=== PATIENT | male | born 1960 | race Caucasian/White ===

== ENCOUNTER 2022-08-19 08:13 | Day surgery (SDC) | payer MEDICAID ==
[2022-08-19] VITALS (15 sets, daily range): BP systolic 108–132; BP diastolic 60–82
[~2022-08-19] VITALS: Ht 182.9 cm; Wt 93.8 kg
[2022-08-19] MEDS ORDERED: albumin 25% 100mL bottle x 1 IV PRN (08:45)
[2022-08-19] MEDS ORDERED: normal saline 1000ml 1,000 ML IV PRN (08:45)
[2022-08-19] MEDS ORDERED: LIDOcaine 1% 30ml preserv. free vial IJ STA (09:12)
[2022-08-19 09:13] LABS: BASOPHILS # (AUTO) 0.1 X10'3 (0-0.2); BASOPHILS % (AUTO) 1.3 % (0-1); EOSINOPHILS # (AUTO) 0.3 X10'3 (0-0.9); EOSINOPHILS % (AUTO) 4.3 % (0-6); HEMATOCRIT 40.8 % (42.0-52.0); HEMOGLOBIN 13.7 g/dl (14.0-17.9); LYMPHOCYTES # (AUTO) 1.6 X10'3 (1.1-4.8); LYMPHOCYTES % (AUTO) 25.6 % (21-51); MEAN CORPUSCULAR HEMOGLOBIN 29.3 PG (27.0-31.0); MEAN CORPUSCULAR HGB CONC 33.5 g/dL (33.0-36.5); MEAN CORPUSCULAR VOLUME 87.5 FL (78-98); MEAN PLATELET VOLUME 7.7 FL (7.4-10.4); MONOCYTES # (AUTO) 0.5 X10'3 (0-0.9); MONOCYTES % (AUTO) 7.6 % (2-12); NEUTROPHILS # (AUTO) 3.8 X10'3 (1.8-7.7); NEUTROPHILS % (AUTO) 61.2 % (42-75); PLATELET COUNT 252 X10'3 (140-440); RED BLOOD COUNT 4.67 X10'6 (4.70-6.10); RED CELL DISTRIBUTION WIDTH 14.6 % (11.5-14.5); WHITE BLOOD COUNT 6.1 X10'3 (4.5-11.0)
[2022-08-19] MEDS ORDERED: fentaNYL/PF 50MCG/1 ML 2ML syringe ONE (10:12)
[2022-08-19] MEDS ORDERED: midazolam 1 mg/ML 2ml injection ONE (10:12)
[2022-08-19] MEDS ORDERED: SAW/1TAB2 PO (10:26)
[2022-08-19] MEDS ORDERED: ZINC50TA60 PO (10:26)
[2022-08-19] MEDS ORDERED: OMEG1600 PO (10:26)
[2022-08-19] MEDS ORDERED: VITA400T10 PO (10:26)
[2022-08-19] MEDS ORDERED: VITA-268 PO (10:26)
[2022-08-19] MEDS ORDERED: PROC-8 PO (10:26)
[2022-08-19] MEDS ORDERED: MAGN400T39 PO (10:26)
[2022-08-19] MEDS ORDERED: ONDA8TAB13 PO (10:26)
[2022-08-19] MEDS ORDERED: MULT-1085 PO (10:26)
[2022-08-19] MEDS ORDERED: ALLO300T2 PO (10:26)
== END 2022-08-19 14:00 | disposition home or self-care (01) ==
LOC: SSTAY O 08:13
PROVIDERS: ATTEND Radiology Vascular & Interventional Radiology
DX: J90 Pleural effusion, not elsewhere classified (principal); R91.8 Other nonspecific abnormal finding of lung field; C82.88 Other types of follicular lymphoma, lymph nodes of multiple sites; Z79.899 Other long term (current) drug therapy; Z98.890 Other specified postprocedural states; Z72.89 Other problems related to lifestyle
CPT/HCPCS: 32408; 32555; 36415; 71045; 82948; 85025; 85610; 99152; J2250; J3010; J3490; J7030; 77012; 99153; A4615

== ENCOUNTER 2022-08-23 14:56 | Emergency (ER) | payer MEDICAID ==
[~2022-08-23] VITALS: Ht 182.9 cm; Wt 93.6 kg
[~2022-08-23 14:56] MED LIST: ALLO300T2 PO; MAGN400T39 PO; MULT-1085 PO; OMEG1600 PO; ONDA8TAB13 PO; PROC-8 PO; SAW/1TAB2 PO; VITA-268 PO; VITA400T10 PO; ZINC50TA60 PO
[2022-08-23 15:11] VITALS: BP 126/77
[2022-08-23] MEDS ORDERED: proparacaine 0.5% ophthalmic drops 15ml LEFTEYE ONE (16:15)
== END 2022-08-23 17:20 | disposition home or self-care (01) ==
LOC: ER 14:57
DX: H53.8 Other visual disturbances (principal)
CPT/HCPCS: 99282

== ENCOUNTER 2022-09-09 10:45 | Day surgery (SDC) | payer MEDICAID ==
[~2022-09-09] VITALS: Ht 182.9 cm; Wt 93.3 kg
[2022-09-09 10:55] VITALS: BP 124/86
[2022-09-09] MEDS ORDERED: heparin sodium, porcine/PF 100unit/ml 5ML syringe ONE (11:52)
[2022-09-09] MEDS ORDERED: fentaNYL/PF 50MCG/1 ML 2ML syringe ONE (11:53)
[2022-09-09] MEDS ORDERED: midazolam 1 mg/ML 2ml injection ONE ×2 (11:53→13:01)
[2022-09-09] MEDS ORDERED: LIDOcaine 1% 30ml preserv. free vial ONE (11:53)
[2022-09-09 12:26] LABS: BASOPHILS % (AUTO) 0.8 % (0-1); EOSINOPHILS # (AUTO) 0.3 X10'3 (0-0.9); EOSINOPHILS % (AUTO) 4.6 % (0-6); HEMATOCRIT 39.5 % (42.0-52.0); HEMOGLOBIN 12.9 g/dl (14.0-17.9); LYMPHOCYTES # (AUTO) 1.3 X10'3 (1.1-4.8); LYMPHOCYTES % (AUTO) 20.9 % (21-51); MEAN CORPUSCULAR HEMOGLOBIN 28.6 PG (27.0-31.0); MEAN CORPUSCULAR HGB CONC 32.8 g/dL (33.0-36.5); MEAN CORPUSCULAR VOLUME 87.3 FL (78-98); MONOCYTES # (AUTO) 0.5 X10'3 (0-0.9); MONOCYTES % (AUTO) 7.7 % (2-12); PLATELET COUNT 255 X10'3 (140-440); RED BLOOD COUNT 4.52 X10'6 (4.70-6.10); RED CELL DISTRIBUTION WIDTH 14.8 % (11.5-14.5)
[2022-09-09 13:40] VITALS: BP 124/86
[2022-09-09 13:45] VITALS: BP 119/73
[2022-09-09 14:00] VITALS: BP 101/72
[2022-09-09 14:15] VITALS: BP 111/74
[2022-09-09 14:30] VITALS: BP 108/68
== END 2022-09-09 14:45 | disposition home or self-care (01) ==
LOC: SSTAY O 10:45
PROVIDERS: ATTEND Radiology Vascular & Interventional Radiology
DX: C82.90 Follicular lymphoma, unspecified, unspecified site (principal); H91.93 Unspecified hearing loss, bilateral; Z79.899 Other long term (current) drug therapy; Z98.890 Other specified postprocedural states
CPT/HCPCS: 36415; 36561; 76937; 77001; 85025; 99152; 99153; C1788; C1894; J1642; J2250; J3010; J3490; J7030; A4620

== ENCOUNTER 2022-09-23 06:01 | Day surgery (SDC) | payer MEDICAID ==
[2022-09-23] VITALS (8 sets, daily range): BP systolic 112–138; BP diastolic 71–89
[~2022-09-23] VITALS: Ht 182.9 cm; Wt 92.0 kg
[~2022-09-23 06:01] MED LIST changes: +LIDOcaine 1% 30ml preserv. free vial SQ STA
[2022-09-23] MEDS ORDERED: DUTA0.5C36 PO (06:25)
[2022-09-23] MEDS ORDERED: SULF1TAB45 (06:25)
[2022-09-23] MEDS ORDERED: KETO5DRO39 EACHEYE (06:25)
[2022-09-23] MEDS ORDERED: PRED10DR7 (06:25)
[2022-09-23] MEDS ORDERED: ACYC-126 PO (06:25)
== END 2022-09-23 09:17 | disposition home or self-care (01) ==
LOC: SSTAY O 06:01
PROVIDERS: ATTEND Radiology Vascular & Interventional Radiology
DX: C85.90 Non-Hodgkin lymphoma, unspecified, unspecified site (principal); J91.0 Malignant pleural effusion; Z79.899 Other long term (current) drug therapy; Z87.898 Personal history of other specified conditions; Z98.890 Other specified postprocedural states
CPT/HCPCS: 32555; 82948; J3490; C1729

== ENCOUNTER 2022-11-14 06:01 | Day surgery (SDC) | payer MEDICAID ==
[2022-11-14] VITALS (7 sets, daily range): BP systolic 111–140; BP diastolic 69–81
[~2022-11-14] VITALS: Ht 182.9 cm; Wt 89.9 kg
[~2022-11-14 06:01] MED LIST changes: +ACYC-126 PO; +DUTA0.5C36 PO; +KETO5DRO39 EACHEYE; -LIDOcaine 1% 30ml preserv. free vial SQ STA; +PRED10DR7; +SULF1TAB45
[2022-11-14] MEDS ORDERED: LIDOcaine 1% 30ml preserv. free vial SQ ONE (06:05)
[2022-11-14] MEDS ORDERED: BEND25VI IV (06:38)
[2022-11-14] MEDS ORDERED: OBIN1000 IV (06:38)
== END 2022-11-14 10:00 | disposition home or self-care (01) ==
LOC: SSTAY O 06:01
PROVIDERS: ATTEND Radiology Vascular & Interventional Radiology
DX: J90 Pleural effusion, not elsewhere classified (principal); N40.0 Benign prostatic hyperplasia without lower urinary tract symptoms; Z85.72 Personal history of non-Hodgkin lymphomas; Z72.89 Other problems related to lifestyle; Z79.899 Other long term (current) drug therapy
CPT/HCPCS: 32555; J3490

== ENCOUNTER 2022-12-10 08:14 | Day surgery (SDC) | payer MEDICAID ==
[~2022-12-10 08:14] MED LIST changes: +BEND25VI IV; -DUTA0.5C36 PO; -KETO5DRO39 EACHEYE; +OBIN1000 IV; -ONDA8TAB13 PO; -PRED10DR7; -PROC-8 PO; -ZINC50TA60 PO
[2022-12-10] MEDS ORDERED: LIDOcaine 1% 30ml preserv. free vial SQ STA (08:21)
[2022-12-10 08:35] VITALS: BP 123/74
[2022-12-10 09:32] VITALS: BP 117/61
[2022-12-10 09:42] VITALS: BP 122/74
[2022-12-10 10:01] VITALS: BP 135/81
[2022-12-10 10:16] VITALS: BP 133/74
== END 2022-12-10 10:30 | disposition home or self-care (01) ==
LOC: SSTAY O 08:14
PROVIDERS: ATTEND Radiology Diagnostic Radiology
DX: J90 Pleural effusion, not elsewhere classified (principal); N40.0 Benign prostatic hyperplasia without lower urinary tract symptoms; H91.8X3 Other specified hearing loss, bilateral; Z85.72 Personal history of non-Hodgkin lymphomas; Z72.89 Other problems related to lifestyle
CPT/HCPCS: 32555; J3490

== ENCOUNTER 2023-04-25 08:44 | Day surgery (SDC) | payer MEDICAID ==
[~2023-04-25] VITALS: Ht 182.9 cm; Wt 91.9 kg
[~2023-04-25 08:44] MED LIST changes: -OBIN1000 IV
[2023-04-25 09:06] VITALS: BP 131/70
[2023-04-25] MEDS ORDERED: normal saline 1000ml 1,000 ML IV PRN (09:15)
[2023-04-25] MEDS ORDERED: MECO10005 (09:29)
[2023-04-25 09:31] LABS: BASOPHILS % (AUTO) 0.6 % (0-1); EOSINOPHILS # (AUTO) 0.2 X10'3 (0-0.9); HEMATOCRIT 37.8 % (42.0-52.0); HEMOGLOBIN 12.5 g/dl (14.0-17.9); LYMPHOCYTES # (AUTO) 0.2 X10'3 (1.1-4.8); LYMPHOCYTES % (AUTO) 4.6 % (21-51); MEAN CORPUSCULAR HEMOGLOBIN 30.5 PG (27.0-31.0); MEAN CORPUSCULAR HGB CONC 33.1 g/dL (33.0-36.5); MEAN CORPUSCULAR VOLUME 92.1 FL (78-98); MEAN PLATELET VOLUME 8.2 FL (7.4-10.4); MONOCYTES # (AUTO) 0.4 X10'3 (0-0.9); NEUTROPHILS # (AUTO) 2.7 X10'3 (1.8-7.7); NEUTROPHILS % (AUTO) 76.8 % (42-75); PLATELET COUNT 206 X10'3 (140-440); RED BLOOD COUNT 4.11 X10'6 (4.70-6.10); WHITE BLOOD COUNT 3.6 X10'3 (4.5-11.0)
[2023-04-25] MEDS ORDERED: diatrozoate meglu/diatrozoate sod (37% iodine) 120ML oral solution PO ONE (09:45)
[2023-04-25] MEDS ORDERED: diatr meglu/diatrizoate 30ml oral sol.-(3 dose) bottle PO ONE (10:20)
[2023-04-25] MEDS ORDERED: fentaNYL/PF 50MCG/1 ML 2ML syringe ONE (10:41)
[2023-04-25] MEDS ORDERED: midazolam 1 mg/ML 2ml injection ONE (10:41)
[2023-04-25 11:05] VITALS: BP 112/79
--- NOTE | 2023-04-25 11:30 | NUR ---
pt back from from IR, no procedure done, unable to do biopsy due to intestines being in the way. pt will follow up with oncologist for further testing. per MD resume all home meds. all belongings sent home with pt. pt ambulated to private vehicle.
== END 2023-04-25 11:35 | disposition home or self-care (01) ==
LOC: SSTAY O 08:44
PROVIDERS: ATTEND Radiology Vascular & Interventional Radiology
DX: R59.0 Localized enlarged lymph nodes (principal); Z53.8 Procedure and treatment not carried out for other reasons; N13.30 Unspecified hydronephrosis; C85.19 Unspecified B-cell lymphoma, extranodal and solid organ sites; N40.0 Benign prostatic hyperplasia without lower urinary tract symptoms; Z72.89 Other problems related to lifestyle; Z79.899 Other long term (current) drug therapy
CPT/HCPCS: 36415; 74150; 85025; J2250; J3010; J7030; Q9963; A4615

== ENCOUNTER 2023-06-25 06:36 | Day surgery (SDC) | payer MEDICAID ==
[2023-06-20 14:54] LABS: BILIRUBIN,URINE NEGATIVE (Neg); CLARITY,URINE CLEAR (Clear); COLOR,URINE YELLOW (Yellow); GLUCOSE, URINE NEGATIVE (Neg); KETONES,URINE NEGATIVE (Neg); LEUKOCYTE ESTERASE ,URINE NEGATIVE (Neg); NITRITES, URINE NEGATIVE (Neg); OCCULT BLOOD,URINE NEGATIVE (Neg); PH,URINE 5.5 (4.8-8.0); PROTEIN,URINE NEGATIVE (Neg); UA COLLECTION TYPE CLN CATCH MIDSTREAM; UROBILINOGEN,URINE 0.2 E.U/dL (0.2-1.0)
[2023-06-20 14:55] LABS: BASOPHILS # (AUTO) 0.1 X10'3 (0-0.2); BASOPHILS % (AUTO) 1.2 % (0-1); EOSINOPHILS # (AUTO) 0.2 X10'3 (0-0.9); EOSINOPHILS % (AUTO) 4.8 % (0-6); LYMPHOCYTES # (AUTO) 0.2 X10'3 (1.1-4.8); LYMPHOCYTES % (AUTO) 3.4 % (21-51); MEAN CORPUSCULAR HGB CONC 33.5 g/dL (33.0-36.5); MEAN CORPUSCULAR VOLUME 89.5 FL (78-98); MEAN PLATELET VOLUME 8.3 FL (7.4-10.4); MONOCYTES # (AUTO) 0.5 X10'3 (0-0.9); MONOCYTES % (AUTO) 10.7 % (2-12); NEUTROPHILS # (AUTO) 4.1 X10'3 (1.8-7.7); NEUTROPHILS % (AUTO) 79.9 % (42-75); PRE OP HEMATOCRIT 36.9 % (42.0-52.0); PRE OP HEMOGLOBIN 12.4 g/dL (14.0-17.9); PRE OP PLATELET COUNT 279 X10'3 (140-440); PRE OP WHITE BLOOD COUNT 5.1 10'3 (4.8-10.8); RED BLOOD COUNT 4.12 X10'6 (4.70-6.10); RED CELL DISTRIBUTION WIDTH 14.2 % (11.5-14.5)
[2023-06-20 15:07] LABS: ALBUMIN 3.4 G/DL (3.4-5.0); ALBUMIN/GLOBULIN RATIO 0.9 (1.1-1.5); ALKALINE PHOSPHATASE 93 IU/L (46-116); BLOOD UREA NITROGEN 21 MG/DL (7-18); CALCIUM 10.1 MG/DL (8.5-10.1); CHLORIDE 100 MMOL/L (99-107); CREATININE 1.05 MG/DL (0.60-1.10); PRE OP ALT 19 U/L (30-65); PRE OP ANION GAP 12 (8-16); PRE OP AST 26 U/L (10-37); PRE OP BILIRUB, TOTAL 0.4 MG/DL (0.0-1.0); PRE OP GLUCOSE 103 MG/DL (70-104); PRE OP SODIUM 141 MMOL/L (135-145); TOTAL CARBON DIOXIDE 28.7 MMOL/L (24-32); TOTAL PROTEIN 7.3 G/DL (6.4-8.2); eGFR 71 ML/MIN
[~2023-06-25] VITALS: Ht 182.9 cm; Wt 88.5 kg
[~2023-06-25 06:36] MED LIST changes: -ACYC-126 PO; -MAGN400T39 PO; +MECO10005; -SAW/1TAB2 PO; -SULF1TAB45; -VITA-268 PO; +cefazolin 2gm/D5W 100mL 100 ML IV ONE; +famotidine 20mg tablet PO ONE; +ringers solution, lacted 1,000 ML IV SCH
[2023-06-25 06:50] VITALS: BP 131/77; PULSE 81; RESP 16; TEMP 98.1; O2SAT 94
[2023-06-25] MEDS ORDERED: BUPIVAcaine/PF 2.5 mg/ml (0.25%) 30ml vial ONE (09:51)
[2023-06-25] MEDS ORDERED: glycopyrrolate 0.2mg/ml inj ONE (09:53)
[2023-06-25] MEDS ORDERED: sevoflurane 250ml liquid IH ONE (09:53)
[2023-06-25] MEDS ORDERED: dexamethasone sod phosphate 10mg/ml inj ONE (09:53)
[2023-06-25] MEDS ORDERED: neostigmine methylsulfate 1 MG/ML 10ml vial ONE (09:53)
[2023-06-25] MEDS ORDERED: meperidine/PF 25mg/ml syringe IV PRN ×3 (09:55)
[2023-06-25] MEDS ORDERED: ondansetron/PF 4mg/2ml inj IV PRN (09:55)
[2023-06-25] MEDS ORDERED: morphine 4 MG/ML inj SYRINge IV PRN (09:55)
[2023-06-25] MEDS ORDERED: ringers solution, lacted 1,000 ML IV SCH (09:55)
[2023-06-25] MEDS ORDERED: morphine 2 MG/ML inj. syringe IV PRN (09:55)
[2023-06-25] MEDS ORDERED: proCHLORperazine 10 MG/2 ml inj IV PRN (09:55)
[2023-06-25] MEDS ORDERED: midazolam 1 mg/ML 2ml injection ONE (09:58)
[2023-06-25] MEDS ORDERED: fentaNYL/PF 50MCG/1 ML 2ML syringe ONE (09:58)
[2023-06-25] MEDS ORDERED: LIDOcaine 1%/PF 5ML 10 MG/ML VIAL ONE (10:06)
[2023-06-25] MEDS ORDERED: rocuronium 10mg/ml inj IV ONE (10:06)
[2023-06-25] MEDS ORDERED: propofol inj 20 ML IV ONE (10:06)
[2023-06-25] MEDS ORDERED: ondansetron/PF 4mg/2ml inj ONE (10:08)
[2023-06-25] MEDS ORDERED: acetaminophen 1,000mg/100ml IV 100 ML IV ONE (10:44)
[2023-06-25 11:02] VITALS: BP 138/90; PULSE 70; RESP 16; O2SAT 97
--- NOTE | 2023-06-25 11:02 | NUR ---
Received from OR via [facility], accompanied by Anesthesiologist and report given by NATALY Anesthesiologist. PATIENT WAKING UP, NO S/S OF PAIN, V/S WNL, SCD ON , PIV 20G RIGHT HAND, LAPS SITES CLOSED C/D/I TO ABDOMEN. Addendum: 06/25/23 at 1122 by Pardeep Valdes RN Amended: Links added.
[2023-06-25 11:10] VITALS: BP 133/76; PULSE 69; RESP 23; O2SAT 95
[2023-06-25 11:20] VITALS: BP 119/74; PULSE 73; RESP 18; O2SAT 90
[2023-06-25 11:30] VITALS: BP 124/76; PULSE 71; RESP 15; O2SAT 95
[2023-06-25 11:40] VITALS: BP 130/77; PULSE 70; RESP 16; O2SAT 96
--- NOTE | 2023-06-25 11:47 | NUR ---
ALL DISCHARGE CRITERIA HAS BEEN MET. VSS, PAIN AT A TOLERABLE LEVEL, ABLE TO SAFELY AMBULATE AND TRANSFER SELF. IV TAKEN OUT WITHOUT ANY COMPLICATIONS. ALL DISCHARGE INSTRUCTIONS COVERED WITH PATIENT AND ALL QUESTIONS ANSWERED. PATIENT TAKEN OUT VIA WHEELCHAIR WITH ALL BELONGINGS TO PERSONAL VEHICLE WHERE FAMILY DROVE PATIENT HOME. Addendum: 06/25/23 at 1204 by Pardeep Valdes RN Amended: Links added.
== END 2023-06-25 11:47 | disposition home or self-care (01) ==
LOC: PAS 06:36
PROVIDERS: ATTEND Surgery
DX: R59.0 Localized enlarged lymph nodes (principal); C83.33 Diffuse large B-cell lymphoma, intra-abdominal lymph nodes; N40.0 Benign prostatic hyperplasia without lower urinary tract symptoms; I25.2 Old myocardial infarction; Z98.890 Other specified postprocedural states; Z79.899 Other long term (current) drug therapy; Z80.42 Family history of malignant neoplasm of prostate
CPT/HCPCS: 38500; 71045; 80053; 81003; 82948; 85025; 93005; J0131; J0690; J1100; J2250; J2405; J2704; J2710; J3010; J3490; J7120; Z7506; Z7508; Z7512; A4215; A4618; A7000

== ENCOUNTER 2024-02-08 17:25 | Inpatient (IN) | payer MEDICAID ==
[~2024-02-08] VITALS: Ht 180.3 cm; Wt 57.9 kg
[~2024-02-08 17:25] MED LIST changes: -cefazolin 2gm/D5W 100mL 100 ML IV ONE; -famotidine 20mg tablet PO ONE; -ringers solution, lacted 1,000 ML IV SCH
[2024-02-08 18:20] LABS: ALBUMIN 2.3 G/DL (3.4-5.0); ANION GAP 12 (8-16); BLOOD UREA NITROGEN 21 MG/DL (7-18); CALCIUM 8.6 MG/DL (8.5-10.1); CHLORIDE 98 MMOL/L (99-107); CREATININE 1.05 MG/DL (0.60-1.10); GLUCOSE 183 MG/DL (70-104); POTASSIUM 3.7 MMOL/L (3.5-5.1); SODIUM 136 MMOL/L (135-145); TOTAL CARBON DIOXIDE 25.6 MMOL/L (24-32); eCRCL 62 ML/MIN; eGFR 71 ML/MIN
[2024-02-08] MEDS: normal saline 1000ML IV soln IVB ONE (18:25)
[2024-02-08 18:42] LABS: EOSINOPHILS # (AUTO) 0.1 X10'3 (0-0.9); MEAN PLATELET VOLUME 8.3 FL (7.4-10.4); MONOCYTES # (AUTO) 0.4 X10'3 (0-0.9)
[2024-02-08 18:46] LABS: MEAN CORPUSCULAR HGB CONC 31.2 g/dL (33.0-36.5); WHITE BLOOD COUNT 7.4 X10'3 (4.5-11.0)
[2024-02-08 18:51] LABS: BASOPHILS # (AUTO) 0.1 X10'3 (0-0.2); BASOPHILS % (AUTO) 1.1 % (0-1); EOSINOPHILS % (AUTO) 1.1 % (0-6); LYMPHOCYTES # (AUTO) 0.2 X10'3 (1.1-4.8); LYMPHOCYTES % (AUTO) 3.1 % (21-51); MEAN CORPUSCULAR HEMOGLOBIN 25.2 PG (27.0-31.0); MEAN CORPUSCULAR VOLUME 80.8 FL (78-98); MONOCYTES % (AUTO) 5.2 % (2-12); NEUTROPHILS # (AUTO) 6.6 X10'3 (1.8-7.7); NEUTROPHILS % (AUTO) 89.5 % (42-75); PLATELET COUNT 556 X10'3 (140-440); RED BLOOD COUNT 2.71 X10'6 (4.70-6.10); RED CELL DISTRIBUTION WIDTH 21.1 % (11.5-14.5)
[2024-02-08 18:58] LABS: HEMOGLOBIN 6.8 g/dl (14.0-17.9)
[2024-02-08 18:59] LABS: HEMATOCRIT 21.9 % (42.0-52.0)
[2024-02-08] MEDS: heparin sodium, porcine/PF 100unit/ml 5ML syringe IV ONE (19:05)
[2024-02-08] MEDS ORDERED: morphine 2 MG/ML inj. syringe IV PRN ×2 (20:05)
[2024-02-08] MEDS ORDERED: potassium Cl 20 mEq SR tablet PO PRN ×2 (20:05)
[2024-02-08] MEDS ORDERED: ondansetron/PF 4mg/2ml inj IV PRN (20:05)
[2024-02-08] MEDS ORDERED: mag hydrox/Alum hydrox/simeth 30ml oral suspension PO PRN (20:05)
[2024-02-08] MEDS ORDERED: acetaminophen 325mg tablet PO PRN (20:05)
[2024-02-08] MEDS ORDERED: magnesium 2GM in 50ml NS 50 ML IV PRN (20:05)
[2024-02-08] MEDS ORDERED: magnesium hydroxide 30ml (MOM) UD suspension PO PRN (20:05)
[2024-02-08] MEDS ORDERED: potassium Cl 40MEQ/1/2NS 520ml 520 ML IV PRN (20:05)
[2024-02-08] MEDS ORDERED: HYDROcodone/acetaminophen 10/325mg tab PO PRN (20:05)
[2024-02-08] MEDS ORDERED: magnesium 4gm in 100ml NS 100 ML IV PRN (20:05)
[2024-02-08] MEDS ORDERED: magnesium Cl slow-release 64mg tablet PO PRN (20:05)
[2024-02-08] MEDS ORDERED: HYDROcodone/acetaminophen 5mg/325mg tablet PO PRN (20:05)
[2024-02-08 20:36] LABS: URINE AMPHETAMINE SCREEN NEGATIVE (Neg); URINE BARBITUATE SCREEN NEGATIVE (Neg); URINE BENZODIAZEPINES SCREEN NEGATIVE (Neg); URINE CANNABINOID SCREEN NEGATIVE (Neg); URINE COCAINE SCREEN NEGATIVE (Neg); URINE METHADONE SCREEN NEGATIVE (Neg); URINE OPIATE SCREEN NEGATIVE (Neg); URINE PHENCYCLIDINE SCREEN NEGATIVE (Neg)
[2024-02-08 20:47] LABS: APTT 25 SECONDS (22-32); INR 1.1 INR; PROTHROMBIN TIME 11.3 SECONDS (9.0-12.0)
[2024-02-08 20:56] LABS: ALANINE AMINOTRANSFERASE 34 U/L (12-78); ALBUMIN/GLOBULIN RATIO 0.5 (1.1-1.5); ALKALINE PHOSPHATASE 127 IU/L (46-116); ANION GAP 10 (8-16); ASPARTATE AMINO TRANSFERASE 47 U/L (10-37); BILIRUBIN,TOTAL 0.4 MG/DL (0.1-1.0); BLOOD UREA NITROGEN 20 MG/DL (7-18); BUN/CREATININE RATIO 24.4 (10.0-20.0); CALCIUM 8.1 MG/DL (8.5-10.1); CHLORIDE 102 MMOL/L (99-107); CREATININE 0.82 MG/DL (0.60-1.10); GLUCOSE 122 MG/DL (70-104); SODIUM 139 MMOL/L (135-145); TOTAL CARBON DIOXIDE 26.8 MMOL/L (24-32); TOTAL PROTEIN 5.8 G/DL (6.4-8.2); eCRCL 79 ML/MIN; eGFR > 90 ML/MIN
[2024-02-08 20:58] LABS: % IRON SATURATION 9 % (11-46); IRON 19 UG/DL (53-167); TOTAL IRON BINDING CAPACITY 203 UG/DL (259-388)
[2024-02-08 21:08] LABS: FERRITIN 535 NG/ML (26-388); PHOSPHORUS 3.5 MG/DL (2.3-4.5)
[2024-02-08] MEDS: normal saline 1000ml 1,000 ML IV ONE (21:20)
[2024-02-08 21:31] LABS: BILIRUBIN,URINE NEGATIVE (Neg); CLARITY,URINE SLIGHTLY CLOUDY (Clear); COLOR,URINE YELLOW (Yellow); GLUCOSE, URINE NEGATIVE (Neg); KETONES,URINE NEGATIVE (Neg); LEUKOCYTE ESTERASE ,URINE NEGATIVE (Neg); NITRITES, URINE NEGATIVE (Neg); OCCULT BLOOD,URINE NEGATIVE (Neg); PH,URINE 5.5 (4.8-8.0); PROTEIN,URINE NEGATIVE (Neg); UROBILINOGEN,URINE 0.2 E.U/dL (0.2-1.0)
[2024-02-08] MEDS ORDERED: LORazepam 2 mg/ml vial IV PRN (21:55)
[2024-02-08 22:00] VITALS: BP 111/60; PULSE 81; RESP 13; TEMP 99.1; O2SAT 97
[2024-02-08 22:49] LABS: UA COLLECTION TYPE CLN CATCH MIDSTREAM
[2024-02-08 22:56] LABS: BACTERIA,URINE NONE SEEN /HPF (Neg); MUCUS STRANDS NONE SEEN /LPF (Neg); RBC,URINE NONE SEEN /HPF (0-2); SQUAMOUS EPITHELIAL CELL,UR FEW /LPF (FEW); WBC,URINE 0-4 /HPF (0-4)
[2024-02-08 22:57] LABS: AMORPHOUS URATES 1+
[2024-02-08 23:04] LABS: MEAN CORPUSCULAR HGB CONC 30.7 g/dL (33.0-36.5); MEAN CORPUSCULAR VOLUME 81.5 FL (78-98); PLATELET COUNT 454 X10'3 (140-440); RED BLOOD COUNT 2.36 X10'6 (4.70-6.10); RED CELL DISTRIBUTION WIDTH 21.2 % (11.5-14.5); WHITE BLOOD COUNT 6.3 X10'3 (4.5-11.0)
[2024-02-08 23:10] LABS: HEMATOCRIT 19.2 % (42.0-52.0); HEMOGLOBIN 5.9 g/dl (14.0-17.9)
[2024-02-08] MEDS ORDERED: pantoprazole 40mg IV 80 MG in normal saline 100ml IV soln 100 ML IV ONE (23:20)
[2024-02-08] MEDS: normal saline 1000ml 1,000 ML IV SCH (23:20)
[2024-02-08] MEDS: pantoprazole 40 MG vial IV ONE (23:37)
[2024-02-09] VITALS (7 sets, daily range): BP systolic 96–112; BP diastolic 47–62; PULSE 79–86; RESP 12–24; TEMP 98.8–99.5; O2SAT 94–96
[2024-02-09] MEDS: sodium ferric gluc complex inj 125 MG in normal saline 100ml IV soln 100 ML IV ONE (00:44)
[2024-02-09] MEDS: pantoprazole 40MG/NS 100ML BAG 100 ML IV SCH (01:55)
[2024-02-09] MEDS ORDERED: pantoprazole 40mg Tablet.DR PO SCH (07:30)
[2024-02-09] MEDS: K and/or MAG REPLACEMENT MC SCH (08:00)
[2024-02-09] MEDS: docusate sod 100mg capsule PO SCH (08:00)
[2024-02-09 10:09] LABS: RED BLOOD COUNT 2.48 X10'6 (4.70-6.10); RETICULOCYTE % (AUTO) 4.5 % (0.5-1.5)
[2024-02-09] MEDS: heparin sodium, porcine/PF 100unit/ml 5ML syringe IV ONE (13:58)
== END 2024-02-09 14:15 | disposition left against medical advice (07) | DRG 253 ==
LOC: ER 17:25 → ED HOLD 20:11 → EDBEDREQTM 21:32 → EDBEDREQ 21:32 → PCU 3S 21:57
PROVIDERS: ADMIT Internal Medicine; ATTEND Family Medicine
PROC: 30233N1 Transfusion of Nonautologous Red Blood Cells into Peripheral Vein, Percutaneous Approach (ICD-10-PCS; principal; 2024-02-09)
DX: K92.2 Gastrointestinal hemorrhage, unspecified (principal); E44.0 Moderate protein-calorie malnutrition; C85.90 Non-Hodgkin lymphoma, unspecified, unspecified site; I95.9 Hypotension, unspecified; F10.90 Alcohol use, unspecified, uncomplicated; N40.0 Benign prostatic hyperplasia without lower urinary tract symptoms; Z53.21 Procedure and treatment not carried out due to patient leaving prior to being seen by health care provider; D64.81 Anemia due to antineoplastic chemotherapy; R70.1 Abnormal plasma viscosity; D63.0 Anemia in neoplastic disease; T45.1X5A Adverse effect of antineoplastic and immunosuppressive drugs, initial encounter; Y92.89 Other specified places as the place of occurrence of the external cause; Z79.899 Other long term (current) drug therapy; Z68.1 Body mass index [BMI] 19.9 or less, adult
CPT/HCPCS: 36415; 36430; 71045; 80048; 80053; 80305; 81001; 82140; 82728; 83540; 83550; 83615; 84100; 84484; 84550; 85025; 85027; 85045; 85610; 85730; 86885; 86900; 86901; 86920; 87081; 93005; 93306; 99285; C9113; G0378; J1642; J2916; J3490; J7030; J7040; P9016